=== PATIENT | female | born 1990 | race Caucasian/White ===

== ENCOUNTER 2023-06-26 13:31 | Outpatient (AMB) | payer MEDICAID, SELFPAY ==
--- NOTE | 2023-06-26 13:40 | MHC.OFFVIS ---
Intake Vital Signs 06/26/23 13:50 Height 5 ft 8 in Weight 173 lb BMI 26.3 BP 118/91 H Blood Pressure Location Lt brachial Position Sitting Pulse 100 Pulse Source Pulse Oximeter Intake Visit Reasons: Chronic SI joint pain right side/LMOVM Allergies Penicillins Adverse Reaction (Severe, Verified 06/26/23 13:51) hives/rash Medication List - Last Reconciled 06/26/23 by Cristela Kearney LPN cyclobenzaprine 10 mg PO TID gabapentin 600 mg PO TID indomethacin 50 mg PO TID omeprazole 20 mg PO BID testosterone cypionate 50 mg IM QWEEK HPI Chronic SI joint pain right side/LMOVM HPI Details 33-year-old female who presents today to the office for an evaluation of chronic low back and leg pain on the right side. The patient is referred for severe right-sided SI joint pain going down the right leg. It is described as 6?8/10 in intensity. The pain started three years ago. It is described as an aching, stabbing sensation. The patient was referred by Dr. Mauricio for consideration of the right SIJ nerve stimulator. The patient is scheduled for BARRY later this week by Dr. Mauricio. The patient received the right SIJ injection on 04/20/23. The patient has a burning, stabbing pain sensation in their back when they start walking. Also feeling weak. Physical therapy has not been very helpful. the patient took a bad fall with possible right shoulder subluxation or dislocation while cleaning ice from the roof. the patient has a history of pinched nerve in her neck. the patient had cyst removal from her buttock region recently. the patient is currently not working. [facility] Medical History (Updated 06/26/23 @ 14:22 by Jono Raymond MD) Pain in joint of right shoulder Disorder of sacrum Review of Systems Const All systems reviewed & are unremarkable except as noted in HPI and below Physical Exam Vital Signs: Last Vital Signs Pulse 100 06/26/23 13:50 BP 118/91 H 06/26/23 13:50 BMI result Body Mass Index 26.3 General: Appears afebrile. Alert and oriented. Mood and affect appropriate. Follows and participates in conversation appropriately. Respiratory effort is unlabored. Able to transition from sit to stand unassisted. Ambulates with bilaterally normal heel strike and toe off. Walks with the help of a crutch due to feeling unsteady and reduce risk of falling. Results Reviewed Results Reviewed: No imaging is available for review. Assessment & Plan Assessment & Plan (1) Lumbar radiculopathy: Code(s): M54.16 - Radiculopathy, lumbar region Plan 33-year-old presenting with right lower back and leg pain likely secondary to lumbar radiculitis. It seems to me that the results of the diagnostic sacroiliac joint injection were equivocal at best. There is evidence of lumbar radiculitis on MRI. It sounds like a transforaminal injection is scheduled in the near future so I encouraged the patient to keep that appointment and see how they do after that injection. I encouraged the patient to try swimming, inversion table, home or physical therapy exercises for core strengthening and stretching and continue doing those over the long-term. If epidural injections are not helpful and a trial of cluneal nerve stimulation is warranted, we will be happy to get that scheduled. I ordered a nerve conduction study for further evaluation of the leg pain, burning and weakness. Scribed for Dr. Raymond by Oscar Velez, medical communication specialist, on 06/26/2023. I, Dr. Raymond, have personally reviewed and agree with the information entered by the scribe. Orders: Orders NE electromyogram (EMG) 06/26/23 M54.16 - Radiculopathy, lumbar region Coding Level of Care Code New Pt Level 4 (44637) Diagnoses Lumbar radiculopathy M54.16
[2023-06-26 13:50] VITALS: BP 118/91; PULSE 100; BMI 26.3
== END 2023-06-26 14:23 | disposition home or self-care (01) ==
PROVIDERS: PCP Physical Medicine & Rehabilitation; Visit Provider Internal Medicine
DX: M54.16 Radiculopathy, lumbar region (principal)
CPT/HCPCS: 99204

== ENCOUNTER → 2023-06-26 13:31 | Outpatient (BNVA) | payer MEDICAID, SELFPAY | PROVIDERS: PCP Physical Medicine & Rehabilitation; Visit Provider Internal Medicine | DX: M54.16 Radiculopathy, lumbar region (principal) | CPT/HCPCS: 99202 ==